=== PATIENT | female | born 1955 | race American Indian/Alaskan Native ===

== ENCOUNTER 2016-06-14 10:05 | Outpatient (CLI) | payer MEDICARE ==
[2016-06-14 10:56] LABS: Blood Urea Nitrogen 18 mg/dL (7-17)
[2016-06-14] MEDS ORDERED: NACL ONE (12:02)
--- NOTE | 2016-06-14 14:16 | Cat Scan Report ---
CT CHEST WITH CONTRAST: HISTORY: Persistent cough. TECHNIQUE: Helical CT following IV contrast. Sagittal and coronal reformatted images. FINDINGS: Heart size is normal. There is no evidence of adenopathy within the mediastinum. Pulmonary jesica are free of any mass and the lungs are clear of infiltrates. The pleura is unremarkable. No masses involve the chest wall. No abnormalities are noted within the upper abdomen. The adrenal glands are normal. IMPRESSION: Unremarkable CT scan of the chest.
== END 2016-06-14 10:06 | disposition home or self-care (01) ==
LOC: CT 10:05
PROVIDERS: ATTEND Specialist
DX: R05 Cough (principal)
CPT/HCPCS: 36415; 71260; 82565; 84520; Q9967